=== PATIENT | female | born 1975 | race Caucasian/White ===

== ENCOUNTER 2016-12-15 21:19 | Emergency (ER) | payer BC ==
[~2016-12-15] VITALS: Ht 160 cm; Wt 90.0 kg
[~2016-12-15 21:19] MED LIST: ACET-1600 PO; ASPI-496 PO; BLOO1STR TP; CYAN1TAB11 PO; DIAZ5TAB4 PO; DIHY1SPR NS; ESOM40CA PO; FURO20TA3 PO; GABA600T2 PO; GLUC1CAP14 PO; HYDR4TAB16 PO; LEVO100T PO; LORA1TAB PO; MEPE50TA PO; MULT-658 PO; ONDA4TAB7 PO; OXYC10TA6 PO; OXYC20TA42 PO; PROM25TA10 PO; SUCR1ORA2 PO
[2016-12-15] MEDS ORDERED: ONDANSETRON 2MG/ML, 2ML ONE (22:38)
[2016-12-15] MEDS ORDERED: MORPHINE SULFATE 4 MG/ML, 1ML ONE (22:38)
[2016-12-15] MEDS ORDERED: MAALOX/HYOSCYAMINE/LIDOCAINE 45 ML BOTTLE ONE (22:38)
[2016-12-15 22:57] LABS: HCG UR OBC PASS
[2016-12-15] MEDS ORDERED: SODIUM CHLORIDE 0.9% 1,000ML IVBOLUS ONE (23:00)
[2016-12-15] MEDS ORDERED: MORPHINE SULFATE 4 MG/ML, 1ML IVPush PRN (23:00)
[2016-12-15] MEDS ORDERED: MAALOX/HYOSCYAMINE/LIDOCAINE 45 ML BOTTLE PO ONE (23:00)
[2016-12-15] MEDS ORDERED: ONDANSETRON 2MG/ML, 2ML IVPush ONE (23:00)
[2016-12-15 23:22] LABS: HEMOGLOBIN 13.6 g/dL (11.7-16.4)
[2016-12-15] MEDS ORDERED: FENTANYL PF 100 MCG/2ML ONE (23:24)
[2016-12-15] MEDS ORDERED: FENTANYL PF 100 MCG/2ML IVPush ONE (23:30)
[2016-12-15 23:36] LABS: BLOOD UREA NITROGEN 9 mg/dL (7-18)
[2016-12-15 23:39] LABS: ASPARTATE AMINO TRANSFERASE 17 U/L (15-37)
[2016-12-15] MEDS ORDERED: GLYC1TAB PO (23:39)
[2016-12-16] MEDS ORDERED: MAALOX/HYOSCYAMINE/LIDOCAINE 45 ML BOTTLE ONE (00:11)
[2016-12-16] MEDS ORDERED: ZIPRASIDONE 20 MG INJ IM ONE ×2 (01:30)
[2016-12-16 01:53] VITALS: BP 100/50
== END 2016-12-16 01:55 | disposition home or self-care (01) ==
LOC: ED 12-16 00:28
DX: R19.7 Diarrhea, unspecified (principal); S39.012A Strain of muscle, fascia and tendon of lower back, initial encounter; M54.9 Dorsalgia, unspecified; G89.29 Other chronic pain; E07.9 Disorder of thyroid, unspecified; G43.909 Migraine, unspecified, not intractable, without status migrainosus; X58.XXXA Exposure to other specified factors, initial encounter; Y93.89 Activity, other specified; Y92.89 Other specified places as the place of occurrence of the external cause; Y99.8 Other external cause status
CPT/HCPCS: 36415; 80053; 81003; 81025; 83690; 85025; 87324; 96361; 96372; 96374; 96375; 99284; J2405; J3010; J3486; J7030

== ENCOUNTER 2017-01-21 17:59 | Emergency (ER) | payer BC ==
[~2017-01-21] VITALS: Ht 160 cm; Wt 84.6 kg
[~2017-01-21 17:59] MED LIST changes: -GLUC1CAP14 PO; +GLUCOSAMINE 1,1 EACH PO; +GLYC1TAB PO
[2017-01-21] MEDS ORDERED: SODIUM CHLORIDE FLUSH 10ML SYR IVF ONE (18:30)
[2017-01-21] MEDS ORDERED: SODIUM CHLORIDE 0.9% 1,000ML IV ONE (18:30)
[2017-01-21] MEDS ORDERED: DEXAMETHASONE 4 MG TABLET ONE (18:57)
[2017-01-21] MEDS ORDERED: MAALOX/HYOSCYAMINE/LIDOCAINE 45 ML BOTTLE ONE ×2 (18:57→20:25)
[2017-01-21] MEDS ORDERED: HYDROmorphone 1 MG/ML, 1ML ONE ×2 (18:57→21:54)
[2017-01-21] MEDS ORDERED: HYDROmorphone 1 MG/ML, 1ML IM ONE ×2 (19:00→22:00)
[2017-01-21] MEDS ORDERED: DEXAMETHASONE 4 MG TABLET PO ONE (19:00)
[2017-01-21] MEDS ORDERED: MAALOX/HYOSCYAMINE/LIDOCAINE 45 ML BOTTLE PO ONE ×2 (19:00→20:30)
[2017-01-21 19:01] LABS: BLOOD UREA NITROGEN 13 mg/dL (7-18)
[2017-01-21 19:06] LABS: ASPARTATE AMINO TRANSFERASE 19 U/L (15-37)
[2017-01-21] MEDS ORDERED: FAMOTIDINE 20 MG TABLET ONE (20:25)
[2017-01-21] MEDS ORDERED: PANTOPRAZOLE 20MG TABLET ONE (20:25)
[2017-01-21] MEDS ORDERED: FAMOTIDINE 20 MG TABLET PO ONE (20:30)
[2017-01-21] MEDS ORDERED: PANTOPRAZOLE 20MG TABLET PO ONE (20:30)
[2017-01-21 22:23] VITALS: BP 109/63
== END 2017-01-21 22:40 | disposition home or self-care (01) ==
LOC: ED 22:33
DX: M51.16 Intervertebral disc disorders with radiculopathy, lumbar region (principal); G89.29 Other chronic pain; G43.909 Migraine, unspecified, not intractable, without status migrainosus; Z88.1 Allergy status to other antibiotic agents; Z88.6 Allergy status to analgesic agent; Z88.8 Allergy status to other drugs, medicaments and biological substances
CPT/HCPCS: 36415; 80053; 81003; 83690; 84703; 85025; 96372; 99284; J1170

== ENCOUNTER → 2017-04-25 | Outpatient (CLI) | payer BC ==
[~2017-04-25] MED LIST changes: -HYDR4TAB16 PO; +HYDR4TAB48 PO
== END | disposition home or self-care (01) ==
LOC: PETCFH 10:17
PROVIDERS: ATTEND Internal Medicine Gastroenterology
DX: K85.90 Acute pancreatitis without necrosis or infection, unspecified (principal); G89.29 Other chronic pain; Z88.8 Allergy status to other drugs, medicaments and biological substances
CPT/HCPCS: 78264; A9541

== ENCOUNTER 2017-06-04 11:45 | Emergency (ER) | payer BC ==
[~2017-06-04] VITALS: Ht 157.5 cm; Wt 89.0 kg
[~2017-06-04 11:45] MED LIST changes: -SUCR1ORA2 PO; +SUCR1ORA5 PO
[2017-06-04] MEDS ORDERED: SODIUM CHLORIDE 0.9% 1,000 ML IV ONE (12:27)
[2017-06-04] MEDS ORDERED: MAALOX/HYOSCYAMINE/LIDOCAINE 45 ML BTL PO ONE (12:30)
[2017-06-04] MEDS ORDERED: SODIUM CHLORIDE 0.9% 1,000ML IVBOLUS ONE (12:30)
[2017-06-04] MEDS ORDERED: SODIUM CHLORIDE FLUSH 10ML SYR IVF ONE (12:30)
[2017-06-04] MEDS ORDERED: ONDANSETRON 2MG/ML, 2ML IVPush ONE (12:30)
[2017-06-04] MEDS ORDERED: HYDROmorphone 1 MG/ML, 1ML ONE ×3 (12:38→13:52)
[2017-06-04] MEDS ORDERED: ONDANSETRON 2MG/ML, 2ML ONE (12:39)
[2017-06-04] MEDS ORDERED: MAALOX/HYOSCYAMINE/LIDOCAINE 45 ML BTL ONE (12:39)
[2017-06-04] MEDS: HYDROmorphone 1 MG/ML, 1ML IVPush PRN ×2 (12:57→13:57)
[2017-06-04 13:11] LABS: HEMATOCRIT 43.8 % (34.6-47.8); HEMOGLOBIN 14.9 g/dL (11.7-16.4); WHITE BLOOD COUNT 13.4 x10^3/uL (3.4-10)
[2017-06-04 13:21] LABS: ASPARTATE AMINO TRANSFERASE 20 U/L (15-37); BLOOD UREA NITROGEN 9 mg/dL (7-18)
[2017-06-04 14:43] VITALS: BP 99/74
== END 2017-06-04 14:46 | disposition home or self-care (01) ==
LOC: ED 14:17
DX: K52.9 Noninfective gastroenteritis and colitis, unspecified (principal); K45.8 Other specified abdominal hernia without obstruction or gangrene; M54.16 Radiculopathy, lumbar region; R10.13 Epigastric pain; Z90.49 Acquired absence of other specified parts of digestive tract
CPT/HCPCS: 36415; 74020; 80053; 81001; 83690; 84703; 85025; 87086; 96361; 96374; 96375; 96376; 99285; J1170; J2405; J7030

== ENCOUNTER → 2017-06-29 | Outpatient (CLI) | payer BC | END | disposition home or self-care (01) | LOC: RAD 08:15 | PROVIDERS: ATTEND Surgery | DX: Z01.818 Encounter for other preprocedural examination (principal); E66.01 Morbid (severe) obesity due to excess calories; Z90.49 Acquired absence of other specified parts of digestive tract | CPT/HCPCS: 74241 ==

== ENCOUNTER 2018-01-05 08:36 | Emergency (ER) | payer BC ==
[~2018-01-05] VITALS: Ht 157.5 cm; Wt 72.7 kg
[2018-01-05] MEDS ORDERED: PROMETHAZINE 25 MG/ML, 1ML ONE (08:55)
[2018-01-05] MEDS ORDERED: DIPHENHYDRAMINE 50 MG/ML, 1ML ONE (08:55)
[2018-01-05] MEDS ORDERED: DIPHENHYDRAMINE 50 MG/ML, 1ML IVPush ONE (09:00)
[2018-01-05] MEDS ORDERED: SODIUM CHLORIDE FLUSH 10ML SYR IVF ONE (09:00)
[2018-01-05] MEDS ORDERED: SODIUM CHLORIDE 0.9% 1,000ML IVBOLUS ONE (09:00)
[2018-01-05] MEDS ORDERED: PROMETHAZINE 25 MG/ML, 1ML IM ONE (09:00)
[2018-01-05] MEDS ORDERED: MORPHINE SULFATE 4 MG/ML, 1ML IVPush ONE (10:00)
[2018-01-05] MEDS ORDERED: MORPHINE SULFATE 4 MG/ML, 1ML ONE (10:06)
[2018-01-05] MEDS ORDERED: DEXAMETHASONE 4 MG/ML, 1ML ONE (10:52)
[2018-01-05] MEDS ORDERED: OXYcodone/APAP 5/325MG TABLET ONE (10:52)
[2018-01-05] MEDS ORDERED: DEXAMETHASONE 4 MG/ML, 1ML IVPush ONE (11:00)
[2018-01-05] MEDS ORDERED: OXYcodone/APAP 5/325MG TABLET PO ONE (11:00)
[2018-01-05 13:07] VITALS: BP 109/57
[2018-01-06] MEDS ORDERED: OXYC-307 PO (00:12)
[2018-01-06] MEDS ORDERED: MORP-52 PO (00:12)
[2018-01-06] MEDS ORDERED: VERA120T74 PO (00:12)
== END 2018-01-05 13:09 | disposition home or self-care (01) ==
LOC: ED 10:00
DX: G43.009 Migraine without aura, not intractable, without status migrainosus (principal); H53.149 Visual discomfort, unspecified; E07.9 Disorder of thyroid, unspecified
CPT/HCPCS: 93005; 96361; 96372; 96374; 96375; 99285; J1100; J1200; J2550; J7030

== ENCOUNTER 2018-01-05 21:03 | Inpatient (IN) | payer BC ==
[~2018-01-05] VITALS: Ht 157.5 cm; Wt 75.0 kg
[2018-01-05] MEDS ORDERED: PROMETHAZINE 25 MG/ML, 1ML IM ONE (22:00)
[2018-01-05] MEDS ORDERED: SODIUM CHLORIDE FLUSH 10ML SYR IVF ONE (22:00)
[2018-01-05] MEDS ORDERED: DIPHENHYDRAMINE 50 MG/ML, 1ML IVPush ONE (22:00)
[2018-01-05] MEDS ORDERED: SODIUM CHLORIDE 0.9% 1,000ML IVBOLUS ONE (22:00)
[2018-01-05] MEDS ORDERED: PROMETHAZINE 25 MG/ML, 1ML ONE (22:08)
[2018-01-05] MEDS ORDERED: DIPHENHYDRAMINE 50 MG/ML, 1ML ONE (22:08)
[2018-01-05] MEDS ORDERED: OXYcodone/APAP 5/325MG TABLET ONE (23:26)
[2018-01-05] MEDS ORDERED: OXYcodone/APAP 5/325MG TABLET PO ONE (23:30)
[2018-01-06] MEDS: SODIUM CHLORIDE 0.9% 1,000 ML IV SCH ×2 (00:10→08:22)
[2018-01-06] MEDS ORDERED: OXYC-307 PO (00:12)
[2018-01-06] MEDS ORDERED: MORP-52 PO (00:12)
[2018-01-06] MEDS ORDERED: VERA120T74 PO (00:12)
[2018-01-06] MEDS: HEPARIN 5,000 UNITS/ML, 1ML SQ SCH ×2 (00:30→08:18)
[2018-01-06] MEDS ORDERED: ONDANSETRON ODT 4 MG PO PRN (00:30)
[2018-01-06] MEDS ORDERED: hydrALAzine 20 MG/ML, 1ML IVPush PRN (00:30)
[2018-01-06] MEDS ORDERED: BISACODYL 10 MG SUPP PR PRN (00:30)
[2018-01-06] MEDS ORDERED: ACETAMINOPHEN 325 MG TABLET PO PRN (00:30)
[2018-01-06] MEDS ORDERED: ONDANSETRON 2MG/ML, 2ML IVPush PRN (00:30)
[2018-01-06] MEDS ORDERED: MEPERIDINE 50 MG TABLET PO SCH (00:30)
[2018-01-06] MEDS ORDERED: POLYETHYLENE GLYCOL 17 GM PACKET PO PRN (00:30)
[2018-01-06] MEDS ORDERED: BUTALB/APAP/CAFFEINE 50MG/325MG/40MG ONE (00:39)
[2018-01-06] MEDS ORDERED: MEPERIDINE/PF 50 MG/ML ONE (00:40)
[2018-01-06] MEDS: BUTALB/APAP/CAFFEINE 50MG/325MG/40MG PO PRN ×3 (00:57→12:28)
[2018-01-06] MEDS: PROMETHAZINE 25 MG/ML, 1ML IM PRN ×3 (00:57→12:28)
[2018-01-06 01:15] VITALS: BP 128/69
[2018-01-06 01:16] LABS: HEMOGLOBIN A1C 5.7 % (4.2-6.3)
[2018-01-06 01:20] LABS: FREE T4 (FREE THYROXINE) 1.14 ng/dL (0.76-1.46); THYROID STIMULATING HORMONE 0.144 mIU/L (0.358-3.740)
[2018-01-06] MEDS ORDERED: MEPERIDINE 50 MG TABLET PO PRN (01:40)
[2018-01-06 02:00] VITALS: BP 120/64
[2018-01-06] MEDS: SUCRALFATE 1 GM/10 ML UDC PO SCH ×2 (05:51→11:26)
[2018-01-06] MEDS: OXYcodone/APAP 5/325MG TABLET PO PRN ×2 (05:52→11:26)
[2018-01-06] MEDS ORDERED: LEVOTHYROXINE 100 MCG TABLET PO SCH (06:00)
[2018-01-06] MEDS ORDERED: PANTOPROZOLE 40MG TABLET PO SCH (07:30)
[2018-01-06] MEDS ORDERED: DIPHENHYDRAMINE 50 MG/ML, 1ML IVPush ONE (08:00)
[2018-01-06 08:46] LABS: ANION GAP 9 mmol/L (5-15); CALCIUM 8.1 mg/dL (8.5-10.1); CHLORIDE 113 mmol/L (98-107); CREATININE 0.53 mg/dL (0.55-1.02)
[2018-01-06 08:59] LABS: BASOPHILS # (AUTO) 0.09 x10^3/uL (0-0.1); BASOPHILS % (AUTO) 1 % (0-1); EOSINOPHILS # (AUTO) 0.03 x10^3/uL (0-0.4); EOSINOPHILS % (AUTO) 0 % (1-7); LYMPHOCYTES # (AUTO) 3.09 x10^3/uL (1-3.4); LYMPHOCYTES % (AUTO) 24 % (22-44); MD NO; MEAN CORPUSCULAR HEMOGLOBIN 29.7 pg (27.0-34.8); MEAN CORPUSCULAR HGB CONC 32.6 g/dL (32.4-35.8); MEAN PLATELET VOLUME 9.3 fL (7.4-10.4); MONOCYTES # (AUTO) 0.83 x10^3/uL (0.2-0.8); MONOCYTES % (AUTO) 7 % (2-9); NEUTROPHILS # (AUTO) 8.81 x10^3/uL (1.8-6.8); NEUTROPHILS % (AUTO) 69 % (42-75); PLATELET COUNT 329 x10^3/uL (130-400); RED BLOOD COUNT 4.64 x10^6/uL (3.82-5.3); RED CELL DISTRIBUTION WIDTH 15.6 % (9.6-15.2)
[2018-01-06] MEDS ORDERED: MULTIVITAMIN 1 TABLET PO SCH (09:00)
[2018-01-06] MEDS ORDERED: SENNA/DOCUSATE TABLET PO SCH (09:00)
[2018-01-06] MEDS ORDERED: VERAPAMIL ER 120MG TABLET.ER PO SCH (09:00)
[2018-01-06 10:43] VITALS: BP 129/69
[2018-01-06 13:12] VITALS: BP 95/60
== END 2018-01-06 13:30 | disposition home or self-care (01) | DRG 103 ==
LOC: ED 22:05 → EDIP 23:34 → 3NW 01-06 00:30
PROVIDERS: ADMIT Internal Medicine; ATTEND Internal Medicine
DX: G43.011 Migraine without aura, intractable, with status migrainosus (principal); E03.9 Hypothyroidism, unspecified; G89.29 Other chronic pain; Z79.891 Long term (current) use of opiate analgesic; Z88.6 Allergy status to analgesic agent; Z88.1 Allergy status to other antibiotic agents; Z88.8 Allergy status to other drugs, medicaments and biological substances
CPT/HCPCS: 36415; 80048; 83036; 83735; 84439; 84443; 85025; 96361; 96372; 96374; J1644; J2550; Q0162; J1200; J7030

== ENCOUNTER 2018-09-13 17:15 | Emergency (ER) | payer OTHER, BC ==
[~2018-09-13] VITALS: Ht 160 cm; Wt 64.3 kg
[~2018-09-13 17:15] MED LIST changes: -GABA600T2 PO; +GABA600T7 PO; +MORP-52 PO; +OXYC-307 PO; +VERA120T74 PO
[2018-09-13 17:28] VITALS: BP 143/82
--- NOTE | 2018-09-13 17:55 | NUR ---
FROM LOBBY TO ROOM AT THIS TIME
[2018-09-13] MEDS ORDERED: ONDANSETRON ODT 4 MG ONE (18:24)
[2018-09-13] MEDS ORDERED: HYDROmorphone 2 MG/ML, 1ML ONE (18:24)
[2018-09-13] MEDS ORDERED: HYDROmorphone 1 MG/ML, 1ML IM ONE (18:30)
[2018-09-13] MEDS ORDERED: ONDANSETRON ODT 4 MG PO ONE (18:30)
== END 2018-09-13 18:34 | disposition home or self-care (01) ==
LOC: ED 18:25
DX: S32.000A Wedge compression fracture of unspecified lumbar vertebra, initial encounter for closed fracture (principal); S29.012A Strain of muscle and tendon of back wall of thorax, initial encounter; G89.29 Other chronic pain; Z90.89 Acquired absence of other organs; Z90.49 Acquired absence of other specified parts of digestive tract; Z87.891 Personal history of nicotine dependence; Z88.0 Allergy status to penicillin; Z88.6 Allergy status to analgesic agent; Z88.8 Allergy status to other drugs, medicaments and biological substances; Z88.1 Allergy status to other antibiotic agents
CPT/HCPCS: 72072; 96372; 99283; J1170; Q0162

== ENCOUNTER 2019-10-18 15:44 | Emergency (ER) | payer BC, OTHER ==
[~2019-10-18] VITALS: Ht 160 cm; Wt 61.0 kg
[~2019-10-18 15:44] MED LIST changes: -VERA120T74 PO; +VERA120T8 PO
[2019-10-18 15:50] VITALS: BP 144/81
[2019-10-18] MEDS ORDERED: CYCLOBENZAPRINE 10 MG TABLET ONE (16:13)
--- NOTE | 2019-10-18 16:21 | NUR ---
meds admin as per mar
[2019-10-18] MEDS ORDERED: CYCLOBENZAPRINE 10 MG TABLET PO ONE (16:30)
== END 2019-10-18 16:36 | disposition home or self-care (01) ==
LOC: ED 16:29
DX: M26.622 Arthralgia of left temporomandibular joint (principal); K21.9 Gastro-esophageal reflux disease without esophagitis; G89.29 Other chronic pain; G43.909 Migraine, unspecified, not intractable, without status migrainosus; Z76.0 Encounter for issue of repeat prescription; Z90.49 Acquired absence of other specified parts of digestive tract; Z88.6 Allergy status to analgesic agent; Z88.8 Allergy status to other drugs, medicaments and biological substances
CPT/HCPCS: 99283